=== PATIENT | male | born 2000 | race Caucasian/White ===

== ENCOUNTER 2022-12-04 11:12 | Emergency (ER) | payer OTHER ==
[~2022-12-04] VITALS: Ht 167.6 cm; Wt 84.0 kg
[2022-12-04 11:22] VITALS: BP 146/75
[2022-12-04] MEDS ORDERED: KETOROLAC TROMETH 60MG/2ML VIAL IM ONE (12:00)
[2022-12-04] MEDS ORDERED: IBUP-1456 PO (12:47)
== END 2022-12-04 12:51 | disposition home or self-care (01) ==
LOC: ER 11:12
DX: S83.92XA Sprain of unspecified site of left knee, initial encounter (principal); W51.XXXA Accidental striking against or bumped into by another person, initial encounter; Y93.89 Activity, other specified; Y92.69 Other specified industrial and construction area as the place of occurrence of the external cause; Y99.8 Other external cause status
CPT/HCPCS: 73562; 96372; 99283; J1885

== ENCOUNTER 2023-10-19 00:25 | Emergency (ER) | payer MEDICAID, OTHER ==
[~2023-10-19] VITALS: Ht 170.2 cm; Wt 85.4 kg
[~2023-10-19 00:25] MED LIST: IBUP-1456 PO
[2023-10-19 01:04] VITALS: BP 146/94; PULSE 73; RESP 16; TEMP 98.1; O2SAT 97
[2023-10-19] MEDS ORDERED: IBUP-1456 PO (03:27)
[2023-10-19] MEDS ORDERED: AMOX875T4 PO (03:27)
[2023-10-19] MEDS: KETOROLAC TROMETH 60MG/2ML VIAL IM ONE (03:44)
[2023-10-19] MEDS: cefTRIAXone SOD 1,000 MG VL IM ONE (03:52)
== END 2023-10-19 03:48 | disposition home or self-care (01) ==
LOC: ER 00:25
DX: H66.91 Otitis media, unspecified, right ear (principal); I10 Essential (primary) hypertension; Z79.1 Long term (current) use of non-steroidal anti-inflammatories (NSAID); Z79.2 Long term (current) use of antibiotics
CPT/HCPCS: 96372; 99284; J0696; J1885